=== PATIENT | male | born 1985 | race Caucasian/White ===

== ENCOUNTER → 2019-11-16 | Outpatient (CLI) | payer OTHER ==
--- NOTE | 2019-11-16 17:05 | KCIC ---
EXAM: Right knee, 4 views HISTORY: Right knee pain after injury. COMPARISON: None. FINDINGS: No fractures are identified. Joint spaces are maintained. There are small osteophytes along the medial and patellofemoral compartments. Alignment is normal. There is no joint effusion. IMPRESSION: 1. Minimal medial and patellofemoral compartmental osteoarthritis. Electronically signed by: Madina Barahona MD (11/16/2019 5:02 PM) [facility]
== END | disposition home or self-care (01) ==
LOC: KCIC 15:12
PROVIDERS: ATTEND Nurse Practitioner Family
DX: M17.11 Unilateral primary osteoarthritis, right knee (principal); M25.761 Osteophyte, right knee
CPT/HCPCS: 73564

== ENCOUNTER → 2020-01-30 | Outpatient (CLI) | payer OTHER ==
--- NOTE | 2020-01-31 12:20 | SLEEP ---
DATE OF STUDY: 01/30/2020 HOME SLEEP STUDY REFERRING BY: Nereyda Ramos APRN. The patient is a 34-year-old who weighs 320 pounds with a BMI of 41. The patient's [place] score was 7. The patient underwent home sleep study performed at [facility]. Total recording time was 401 minutes. During the night study, the patient had 34 obstructive apneas, no central apneas, 37 mixed apneas and 152 hypopneas. The patient's AHI was 39.6 per hour. Nocturnal oximetry study revealed an average oxygen saturation of 94% with the lowest of 76%. 18 minutes were spent in oxygen saturation less than 90%. Mean heart rate 81 beats per minute with a maximum of 122 beats per minute. IMPRESSION: 1. Severe obstructive sleep apnea at an AHI of 39.6 per hour. 2. Nocturnal hypoxia secondary to obstructive sleep apnea. RECOMMENDATIONS: 1. The patient would benefit from in-lab CPAP titration study. Alternate treatment option would include home auto-titration study. 2. Once the patient is optimally treated with CPAP, then follow up in 4-6 weeks to assess compliance and to document clinical improvement. 3. Weight loss is strongly advised. 4. Avoid [employer] [facility] [employer] depressants. 5. Cautioned regarding driving until symptoms of sleep apnea resolve with the use of CPAP. BEAR DOYLE MD DR: LAZARO/minal JOB#: [id number] / [id number] NEREYDA Deleon APRN
== END | disposition home or self-care (01) ==
LOC: RT 07:16
PROVIDERS: ATTEND Nurse Practitioner Family
DX: G47.33 Obstructive sleep apnea (adult) (pediatric) (principal); G47.34 Idiopathic sleep related nonobstructive alveolar hypoventilation
CPT/HCPCS: G0399

== ENCOUNTER → 2020-03-12 | Outpatient (CLI) | payer OTHER ==
[~2020-03-12] MED LIST: ZOLPIDEM 5 MG TABLET. PO ONE
--- NOTE | 2020-03-13 13:27 | SLEEP ---
DATE OF STUDY: 03/12/2020 OBJECTIVE: The patient is a 34-year-old male, previously studied on 01/31/2020 with a home sleep study showing apnea-hypopnea index of 39.6 events per hour of sleep. He returns to the lab for a CPAP titration study. Height 6 feet 3 inches, weight 340 pounds, body mass index 42. [place] sleep score 10. INTERPRETATION: Sleep architecture is characterized by sleep efficiency of 97% across the 7.4 hours of recording time. Stage volumes are appropriate for age. Sleep onset latency is 3 minutes. Respiratory monitoring shows a total of 44 events for an apnea-hypopnea index of 6.1 events per hour of sleep. Minimum oxygen saturation is 78%. Treatment is initiated and at a setting of 17 cm, the apnea/hypopnea index falls to 2.9 events per hour of sleep. No significant cardiac arrhythmias or periodic limb movements of sleep are observed. IMPRESSION: Abnormal polysomnogram with successful CPAP titration using 17 cm Respironics DreamWear full face mask, medium size. RECOMMENDATIONS: 1. The patient should be initiated on this setting. 2. He should avoid sedatives and alcohol and pursue weight loss. Thank you for letting us help with the patient's care. PJ ARCINIEGA MD DR: ELISABET/minal JOB#: [id number] / [id number] BEAR Carrasco MD, SANDRA APRN
== END ==
LOC: RT 18:44
PROVIDERS: ATTEND Nurse Practitioner Family
DX: G47.30 Sleep apnea, unspecified (principal)
CPT/HCPCS: 95811

== ENCOUNTER → 2020-05-24 | Outpatient (CLI) | payer OTHER ==
--- NOTE | 2020-05-24 17:15 | KCIC ---
MR LUMBAR SPINE [id number] History: Reason: LUMBAR RADICULOPATHY / Spl. Instructions: / History: LBP and worsening right thigh radiculopathy. Technique: Multiplanar, multi sequential MR imaging was performed of the lumbar spine. Comparison: None Findings: Several sequences are mildly motion degraded. Normal vertebral body height and alignment. No fracture. Congenitally small spinal canal. T12 vertebral body lesion measures 0.7 x 0.6 cm, likely atypical hemangioma. Conus terminates at the normal location. No evidence of nerve root clumping. L1-L2: No canal or neuroforaminal narrowing. L2-L3: Small disc bulge. No canal or neuroforaminal narrowing. L3-L4: Disc bulge with central disc protrusion. Mild canal narrowing. Subarticular recess narrowing. Mild facet arthropathy. No neuroforaminal narrowing. L4-L5: Disc bulge with central disc protrusion and annular fissure. Moderate canal narrowing. Subart icular recess narrowing with abutment of the descending L5 nerve roots. Moderate facet arthropathy. N o neuroforaminal narrowing. L5-S1: Narrowing of the thecal sac due to epidural fat. Moderate facet arthropathy. No neuroforamina l narrowing. Impression: 1. Multilevel lumbar spondylosis with congenitally small spinal canal and prominent epidural fat. 2. L4-L5 moderate canal narrowing and subarticular recess narrowing. 3. L3-L4 mild canal narrowing. Electronically signed by: Giovany Nieves DO (05/24/2020 5:09 PM) [id number]
== END ==
LOC: KCIC MRI 12:50
PROVIDERS: ATTEND Nurse Practitioner Family
DX: M47.26 Other spondylosis with radiculopathy, lumbar region (principal); M48.061 Spinal stenosis, lumbar region without neurogenic claudication; G57.91 Unspecified mononeuropathy of right lower limb
CPT/HCPCS: 72148

== ENCOUNTER → 2020-06-13 | Outpatient (CLI) | payer OTHER ==
[~2020-06-13] MED LIST changes: +GABA-585 PO; +LEXAPRO20 MG PO; +MELO15TA23 PO; -ZOLPIDEM 5 MG TABLET. PO ONE
--- NOTE | 2020-06-13 10:27 | PDOC1 ---
INITIAL PAIN CONSULT DATE OF SERVICE: DOS: DATE: 06/13/20 TIME: 10:20 CHIEF COMPLAINT: Chief Complaint: Low back and right lower extremity pain HISTORY OF PRESENT ILLNESS: 35-year-old male presents history of pain low back right lower extremity greater than left for about 3 months or so not the result of any specific injury or accident that he is aware of, but has had significant pain in the low back the right lower extremity greater than left in the posterior gluteus posterior lateral thigh lateral anterior thigh anteromedial thigh medial lower leg as well as in the anterior thigh on the left. Patient reports is across the low back as well aching and dull describes the pain is constant sharp stabbing throbbing in the back shooting in the lower extremity specially on the right side tingling and numbness in the leg as well as the foot with some easy fatigability in the right lower extremity compared to the left when standing walking changing positions. Patient reports is better with sitting or laying down but does awaken her from sleep about 2-3 times every night. Patient reports does not affect his bowel bladder control but does affect his ability walk he feels he is favoring his right lower extremity however is not using any assistive devices to ambulate such as canes or walkers. Patient has physical therapy started and is just begun with his physical therapy has been doing stretching and strength exercises on his own at home for about 2 months. Patient bertha is been off work since April 2020. Patient reports while the stretching does help slightly it is not decreasing the pain significantly and walking and standing is still significantly tender. Patient taking gabapentin as well also taking Aleve and ibuprofen also Tylenol only with temporary results of decreased pain by about 20%. Patient did have an MRI scan lumbar spine showing L3-4 disc bulge with central disc protrusion L4-5 shows disc bulge central disc protrusion and annular fissure and moderate canal narrowing with abutment of the descending L5 nerve roots. Patient reports no loss of motor function no bowel or bladder incontinence. PAST MEDICAL HISTORY: PMH: Arthritis, obesity, sleep apnea PREVIOUS SURGERIES: Past Surgical Hx: Mastoidectomy times 07/05/1992 CURRENT MEDICATIONS: Current Meds: Active Scripts Medications Dose Route/Sig Max Daily Dose Days Date Category Meloxicam 15 Mg Tablet 1 Tab PO DAILY 30 06/13/20 Reported Lexapro (Escitalopram Oxalate) 20 Mg Tablet 1 Tab PO DAILY 06/13/20 Reported Gabapentin (Gabapentin) 100 Mg Capsule 100 Mg PO HS 06/13/20 Reported ALLERGIES; Allergies: Coded Allergies: No Known Drug Allergies (Unverified , 03/12/20) FAMILY HISTORY: Family Hx: Diabetes, heart disease SOCIAL HISTORY: Social Hx: Patient does not drink alcohol does not smoke not use any illegal illicit or recreational drugs is single lives locally in [facility] 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 REVIEW OF SYSTEMS: ROS: Positive for those items mentioned in history of present illness, all systems are reviewed, otherwise negative ,and are complete full and well-documented on patient's chart. PHYSICAL EXAM: VS: Blood pressure is 167/81 pulse 84 respirations 18 temperature is 99.1 F height is 6 feet 2 inches weight is 337 pounds PE: PHYSICAL EXAMINATION: GENERAL: The patient is awake, alert, oriented, appropriate, very pleasant demeanor HEENT: Shows normocephalic, atraumatic. Extraocular movements are intact and symmetrical. Oral cavity: Mucous membranes moist and pink. Dentition is intact. NECK: Shows anterior throat supple without palpable lymphadenopathy noted. Swallow reflex symmetrical. CHEST: Shows normal on inspection. Breath sounds are clear bilaterally, no rales rhonchi or wheezes auscultated. HEART: Shows S1, S2 clear. No murmurs auscultated. ABDOMEN: Soft, nontender, nondistended, obese. No palpable organomegaly is noted. No rebound or guarding demonstrated. BACK: Shows spine grossly in the midline. Normal-appearing cervical lordotic curvature. There is slightly increased thoracic kyphosis, some minor flattening of the lumbar lordotic curvature. Lumbar paraspinous muscles show symmetrical on inspection, on palpation shows some moderate tenderness diffusely throughout the upper, middle and lower distribution of the paraspinous muscles bilaterally and also into the lower thoracic paraspinous musculature, firm and tender, but without specific trigger points, without radiation of pain. The patient has good rotational motion of the lumbar spine, both laterally as well as extension and flexion without significant difficulty or inability. No tenderness over the spinous processes, sacrum or sacroiliac regions. EXTREMITIES: Lower extremities show deep tendon reflexes 2+ in the patellar and tendo calcaneus tendons. Motor exam is 4 on a scale of 5 with right dorsiflexion, extension, quadriceps and hamstring flexion and 5/5 on the left. Peripheral pulses are 1+ posterior tibial. No peripheral edema is noted bilaterally. Lower extremities are warm and dry to touch, equal in color and appearance. Straight leg raise noted to be positive on the right about 40 degrees, left side is negative. Gaenslen's and Ranulfo's maneuvers are negative bilaterally. The patient is able to stand, stand on his toes without significan t difficulty or loss of balance, walks with a slight favoring gait does appear to favor the right lower extremity mildly with a limp but not use any assistive device such as canes or walkers to ambulate. SKIN: Shows warm and dry, good turgor. No edema. No sores, rashes or bruising throughout. IMPRESSION: Impression: 35-year-old male with approximate 3-month history increasing pain low back right greater than left lower extremity radicular fashion following a L4-5 dermatomal distribution Obesity Arthritis Sleep apnea Plan: Options were discussed with the patient including conservative medical management physical therapies interventional techniques. Patient would like to pursue interventional techniques. Patient with clinical right-sided L4-5 radiculopathy we discussed a lumbar epidural steroid injection using description as well as anatomical models to describe the procedure. Patient will wait for preauthorization with his insurance provider and once this is obtained we will have him return for a lumbar epidural steroid injection translaminar approach at the L4-5 level. In the meantime we will try Medrol Dosepak patient was given instructions well side effects beware with the medication and will follow-up as scheduled. TARA MORE MD Jun 13, 2020 10:27
== END | disposition home or self-care (01) ==
LOC: PNCL 08:56
PROVIDERS: ATTEND Anesthesiology
DX: M54.5 Low back pain (principal); M79.604 Pain in right leg; M19.90 Unspecified osteoarthritis, unspecified site; E66.9 Obesity, unspecified; G47.30 Sleep apnea, unspecified; Z79.899 Other long term (current) drug therapy; Z98.890 Other specified postprocedural states; Z82.49 Family history of ischemic heart disease and other diseases of the circulatory system; Z83.3 Family history of diabetes mellitus
CPT/HCPCS: 99214; G0463

== ENCOUNTER → 2020-06-27 | Outpatient (CLI) | payer OTHER ==
[~2020-06-27] MED LIST changes: +IOHEXOL 180 MG/ML 10 ML VIAL. ONE; +methylPREDNISolone ACETATE 40 MG/ML VIAL. ONE; +methylPREDNISolone ACETATE 80 MG/ML VIAL. ONE
--- NOTE | 2020-06-27 09:30 | PDOC ---
Progress Note - Pain Clinic Date of Service: DOS: DATE: 06/27/20 TIME: 09:28 Diagnosis: Dx: Lumbar radiculopathy with lumbar degenerative disc disease History or Present Illness: HPI: 35-year-old male returns follow-up status post initial evaluation and preauthorization for lumbar epidural steroid injection. Patient reports still significant pain the low back and right lower extremity as it was previously Medrol Dosepak was helpful for the first several days but the pain is returned now in the low back rating the posterior gluteus posterior lateral thigh lateral anterior thigh anterior medial thigh medial lower leg and medial knee on the right side. Patient reports it is an 8 on scale 10 is worse over the past week 6 on average 3 at its least is a 6 today patient scribes as aching and sharp tight and shooting stabbing burning and tingling and can be constant with walking and standing patient reports better with sitting or laying down does not awaken her from sleep at night. Patient reports no new motor or sensory deficits no new bowel or bladder incontinence or other complaints. Physical Exam: VS: Blood pressure is 150/94 pulse 85 respirations 18 temperature 98.2 F height is 6 foot 3 inches weight is 374 pounds PE: PHYSICAL EXAMINATION: GENERAL: The patient is awake, alert, oriented, appropriate, very pleasant demeanor HEENT: Shows normocephalic, atraumatic. Extraocular movements are intact and symmetrical. Oral cavity: Mucous membranes moist and pink. NECK: Shows anterior throat supple without palpable lymphadenopathy noted. Swallow reflex symmetrical. CHEST: Shows normal on inspection. Breath sounds are clear bilaterally. HEART: Shows S1, S2 clear. No murmurs auscultated. ABDOMEN: Soft, nontender, nondistended, obese. No palpable organomegaly is noted. BACK: Shows spine grossly in the midline. Normal-appearing cervical lordotic curvature. There is increased thoracic kyphosis, some flattening of the lumbar lordotic curvature. Lumbar paraspinous muscles show symmetrical on inspection, on palpation shows some moderate tenderness diffusely throughout the upper, middle and lower distribution of the paraspinous muscles without specific trigger points, without radiation of pain. The patient has good rotational m otion of the lumbar spine, both laterally as well as extension and flexion without significant difficulty. No tenderness over the spinous processes, sacrum or sacroiliac regions. EXTREMITIES: Lower extremities show deep tendon reflexes 2+ in the patellar and tendo calcaneus tendons. Motor exam is 4 on a scale of 5 with right dorsiflexion, extension, quadriceps and hamstring flexion and 5/5 on the left. Peripheral pulses are 1+ posterior tibial. No peripheral edema is noted bilaterally. Lower extremities are warm and dry to touch, equal in color and appearance. SKIN: Shows warm and dry, good turgor. No edema. No sores, rashes or bruising throughout. Procedure: Procedure: Options were discussed with the patient. Patient chart reviews her current medication regimen updated current review of systems updated today as well. We will proceed with a lumbar epidural steroid injection today with fluoroscopic guidance. Risks were discussed including but not limited to: Bleeding, infection, possibility of epidural hematoma and subsequent neurological compromise, dural puncture, headaches, spinal cord and/or nerve damage, side effects of steroid medication, and poor results regarding pain control. Patient understands and wished to proceed. Patient will return to the clinic in approximate 2 weeks for follow-up, was counseled as return appointment activity level and side effects to be aware of. Medication Injected: Med Injected: Procedure is lumbar epidural steroid injection under local anesthetic using sterile prep and drape at the L4-5 level using C-arm fluoroscopic guidance in both AP and lateral views medications injected is 112 mg Depo-Medrol + 10 mL preservative-free normal saline and 2 mL contrast- condition at discharge is stable patient tolerated procedure well had no complications. Condition at Discharge: Condition at Discharge: Condition at discharge stable, patient alert procedure well had no complications. TARA MORE MD Jun 27, 2020 09:30
--- NOTE | 2020-06-27 09:31 | PDOC4 ---
PROCEDURE Procedure Patient was consented for lumbar epidural steroid injection. Risks were dis cussed including but not limited to: Bleeding, infection, possibility of epidural hematoma and subsequent neurological compromise, dural puncture, headaches, spinal cord and/or nerve damage, side effects of steroid medication, and poor results regarding pain control. Patient understands and wished to proceed. Procedure is lumbar epidural steroid injection under local anesthetic using sterile prep and drape at the L4-5 level using C-arm fluoroscopic guidance in both AP and lateral views medications injected is 120 mg Depo-Medrol + 10 mL preservative-free normal saline and 2 mL contrast- condition at discharge is stable patient tolerated procedure well had no complications. TARA MORE MD Jun 27, 2020 09:31
== END | disposition home or self-care (01) ==
LOC: PNCL 09:02
PROVIDERS: ATTEND Anesthesiology
DX: M51.16 Intervertebral disc disorders with radiculopathy, lumbar region (principal); Z79.899 Other long term (current) drug therapy; Z98.890 Other specified postprocedural states
CPT/HCPCS: 62323; J1030; J1040; Q9965

== ENCOUNTER → 2020-07-11 | Outpatient (CLI) | payer OTHER ==
[~2020-07-11] MED LIST changes: -IOHEXOL 180 MG/ML 10 ML VIAL. ONE; -methylPREDNISolone ACETATE 40 MG/ML VIAL. ONE; -methylPREDNISolone ACETATE 80 MG/ML VIAL. ONE
--- NOTE | 2020-07-11 16:10 | RAD ---
EXAMINATION: XR KNEE 3 VIEWS CLINICAL HISTORY: Right knee pain TECHNIQUE: Bilateral knee radiographs Number of Images/Views: 6 COMPARISON: Right knee radiographs 11/16/2019 FINDINGS: Mild medial lateral compartment narrowing in the right knee. Joint spaces maintained in the left knee . Tricompartmental tiny marginal osteophytes bilaterally. No acute fracture. Small to moderate joint effusion. No significant left joint effusion. IMPRESSION: Mild degenerative changes right knee, greatest in the medial compartment. Electronically signed by: Kelvin Harrell DO (07/11/2020 4:08 PM) [id number]
== END | disposition home or self-care (01) ==
LOC: RAD 09:56
PROVIDERS: ATTEND Anesthesiology
DX: M17.11 Unilateral primary osteoarthritis, right knee (principal)
CPT/HCPCS: 99212; 73562-50; G0463

== ENCOUNTER → 2020-07-25 | Outpatient (CLI) | payer OTHER ==
[~2020-07-25] MED LIST changes: +IOHEXOL 180 MG/ML 10 ML VIAL. ONE; +methylPREDNISolone ACETATE 40 MG/ML VIAL. ONE; +methylPREDNISolone ACETATE 80 MG/ML VIAL. ONE
--- NOTE | 2020-07-25 09:33 | PDOC ---
Progress Note - Pain Clinic Date of Service: DOS: DATE: 07/25/20 TIME: 09:30 Diagnosis: Dx: Lumbar to colopathy lumbar degenerative disc disease Right knee joint pain with osteoarthritis History or Present Illness: HPI: 35-year-old male returns follow-up status post lumbar epidural steroid x1. Patient reports about 75% improvement after the first injection now with pain returning and awaiting preauthorization which he is obtained now with his insurance provider for second injection. Patient reports still significant pain in the low back right lower extremity posterior gluteus lateral thigh anterior thigh medial thigh medial knee as well. Patient reports is worse with walking and standing especially walking greater than 5 to 10 minutes. Patient reports after last injection no he was walking much better doing household activities travel with greater ease and comfort as well as sleeping better at night. Patient reports is generally not awaken from sleep at this time patient describes the pain as constant on and off in intensity tingling burning cramping and stabbing in the back with radiating shooting pain in the right leg that can be sharp as well patient rates his pain as an 8 on scale 10 is worse in the past week 5 on average to its least and is a 5 today. Patient reports no new motor or sensory deficits no new bowel or bladder incontinence. Physical Exam: VS: Pressure 160/102 pulse 90 respirations 18 temperature 98.3 F height is 6 feet 3 inches weight is 369 pounds PE: PHYSICAL EXAMINATION: GENERAL: The patient is awake, alert, oriented, appropriate, very pleasant demeanor HEENT: Shows normocephalic, atraumatic. Extraocular movements are intact and symmetrical. Oral cavity: Mucous membranes moist and pink. Dentition is intact. NECK: Shows anterior throat supple without palpable lymphadenopathy noted. Swallow reflex symmetrical. CHEST: Shows normal on inspection. Breath sounds are clear bilaterally, distant but no rales or rhonchi. HEART: Shows S1, S2 clear. No murmurs auscultated. ABDOMEN: Soft, nontender, nondistended, obese. No palpable organomegaly is noted. BACK: Shows spine grossly in the midline. Normal-appearing cervical lordotic curvature. There is slightly increased thoracic kyphosis, some minor flattening of the lumbar lordotic curvature. Lumbar paraspinous muscles show symmetrical on inspection, on palpation shows some moderate tenderness diffusely throughout the upper, middle and lower distribution of the paraspinous muscles without specific trigger points, without radiation of pain. The patient has good rotational motion of the lumbar spine, both laterally as well as extension and flexion without significant difficulty. No tenderness over the spinous processes, sacrum or sacroiliac regions. EXTREMITIES: Lower extremities show deep tendon reflexes 2+ in the patellar and tendo calcaneus tendons. Motor exam is 4 on a scale of 5 with right dorsiflexion, extension, quadriceps and hamstring flexion and 5/5 on the left. Peripheral pulses are 1+ posterior tibial. No peripheral edema is noted bilaterally. Lower extremities are warm and dry to touch, equal in color and appearance. SKIN: Shows warm and dry, good turgor. No edema. No sores, rashes or bruising throughout. Procedure: Procedure: Options were discussed with the patient. Patient chart reviews his current medication regimen updated current review of systems updated today as well. We will proceed with a second in the series lumbar epidural steroid injection stable fluoroscopic guidance. Risks were discussed including but not limited to: Bleeding, infection, possibility of epidural hematoma and subsequent neurological compromise, dural puncture, headaches, spinal cord and/or nerve damage, side effects of steroid medication, and poor results regarding pain control. Patient understands and wished to proceed. Patient will return to clinic in approximate 2 weeks for follow-up, was counseled as to return appointment activity level and side effects to be aware of. We reviewed the plain films of patient's knees showing right side with mild degenerative changes in the medial compartment. Medication Injected: Med Injected: Procedure is lumbar epidural steroid injection under local anesthetic using sterile prep and drape at the L4-5 level using C-arm fluoroscopic guidance in both AP and lateral views medications injected is 120 mg Depo-Medrol + 10 mL preservative-free normal saline and 2 mL contrast- condition at discharge is stable patient tolerated procedure well had no complications. Condition at Discharge: Condition at Discharge: Condition at discharge stable, patient already procedure well and had no complications. TARA MORE MD Jul 25, 2020 09:33
--- NOTE | 2020-07-25 09:34 | PDOC4 ---
PROCEDURE Procedure Patient was consented for lumbar epidural steroid injection. Risks were dis cussed including but not limited to: Bleeding, infection, possibility of epidural hematoma and subsequent neurological compromise, dural puncture, headaches, spinal cord and/or nerve damage, side effects of steroid medication, and poor results regarding pain control. Patient understands and wished to proceed. Procedure is lumbar epidural steroid injection under local anesthetic using sterile prep and drape at the L4-5 level using C-arm fluoroscopic guidance in both AP and lateral views medications injected is 120 mg Depo-Medrol + 10 mL preservative-free normal saline and 2 mL contrast- condition at discharge is stable patient tolerated procedure well had no complications. TARA MORE MD Jul 25, 2020 09:34
== END | disposition home or self-care (01) ==
LOC: PNCL 08:32
PROVIDERS: ATTEND Anesthesiology
DX: M51.36 Other intervertebral disc degeneration, lumbar region (principal); M17.11 Unilateral primary osteoarthritis, right knee; Z79.899 Other long term (current) drug therapy
CPT/HCPCS: 62323; J1030; J1040; Q9965; 77002

== ENCOUNTER → 2020-08-09 | Outpatient (CLI) | payer OTHER ==
[~2020-08-09] MED LIST changes: +BUPIVACAINE MPF 0.25% 10 ML VIAL. ONE; -methylPREDNISolone ACETATE 40 MG/ML VIAL. ONE
--- NOTE | 2020-08-09 09:11 | PDOC ---
Progress Note - Pain Clinic Date of Service: DOS: DATE: 08/09/20 TIME: 09:07 Diagnosis: Dx: Lumbar radiculopathy with lumbar degenerative disc disease Right knee joint pain with primary osteoarthritis History or Present Illness: HPI: 35-year-old male returns follow-up status post lumbar epidural straight injections x2. Patient reports near had a percent improvement in the back pain but still some pain in the right knee back is doing much better increase activity with distance walking distance traveling working activities household activities patient reports he can travel with greater ease and comfort he did go back to work had been off for 4 months but returned recently and has been doing better but his right knee is his main complaint today. Patient reports the knee is worse with walking standing putting weight on it specially stepping on a curb or step with all his weight on his right leg. Patient reports is a 7 on scale 10 is worse over the past week 5 on average to its least is a 5 today patient scribes pain in the knee is aching and sharp tight tingling at times and constant with weightbearing better with sitting or laying down generally is not awakening from sleep and over the last week has this is been walking more at work about every 6 or 6-1/2 hours. Patient reports no new motor or sensory deficits no new bowel or bladder incontinence or other complaints. Physical Exam: VS: Blood pressure is 145/81 pulse 84 respirations 18 temperature 98.6 F height is 6 foot 2 inches weight is 358 pounds PE: PHYSICAL EXAMINATION: GENERAL: The patient is awake, alert, oriented, appropriate, very pleasant demeanor HEENT: Shows normocephalic, atraumatic. Extraocular movements are intact and symmetrical. Oral cavity: Mucous membranes moist and pink. NECK: Shows anterior throat supple without palpable lymphadenopathy noted. Swallow reflex symmetrical. CHEST: Shows normal on inspection. Breath sounds are clear bilaterally, no rales or rhonchi. HEART: Shows S1, S2 clear. No murmurs auscultated. ABDOMEN: Soft, nontender, nondistended, obese. No palpable organomegaly is noted. No rebound or guarding demonstrated. BACK: Shows spine grossly in the midline. Normal-appearing cervical lordotic curvature. There is slightly increased thoracic kyphosis, some minor flattening of the lumbar lordotic curvature. Lumbar paraspinous muscles show symmetrical on inspection, on palpation shows some moderate tenderness diffusely throughout the upper, middle and lower distribution of the paraspinous muscles without specific trigger points, without radiation of pain. The patient has good rotational motion of the lumbar spine, both laterally as well as extension and flexion without significant difficulty. No tenderness over the spinous processe s, sacrum or sacroiliac regions. EXTREMITIES: Lower extremities show deep tendon reflexes 2+ in the patellar and tendo calcaneus tendons. Motor exam is 4 on a scale of 5 with right dorsiflexion, extension, quadriceps and hamstring flexion and 5/5 on the left. Peripheral pulses are 1+ posterior tibial. No peripheral edema is noted bilaterally. Lower extremities are warm and dry to touch, equal in color and appearance. Patient's right knee shows tenderness with palpation over the medial collateral ligament as well as the medial aspect of the inferior patella but with displacement is not any more tender. Patient has good rotational motion both actively and passively without crepitus without ratcheting. Left knee is normal on inspection and range of motion no tenderness with palpation throughout. SKIN: Shows warm and dry, good turgor. No edema. No sores, rashes or bruising throughout. Procedure: Procedure: Options discussed with the patient. Patient will chart reviews his current medication regimen updated current review of systems updated today as well. We will proceed with a right intra-articular knee joint injection today with fluoroscopic guidance. Risks were discussed including but limited to bleeding infection possibility of intravascular injection sequelae spread to local anesthetic and numbness special fluoroscopy side effects steroid medication and portal scarring pain control. Patient understands wished to proceed. Patient return to clinic in approximately 2 weeks for follow-up was counseled as to return appointment activity level and side effects to be aware of. Medication Injected: Med Injected: Under sterile prep and drape patient in the supine position using C-arm fluoroscopic guidance patient's right knee was visualized and using 1% lidocaine was topically anesthetized over the medial compartment of the right knee. Using a 22-gauge needle the knee joint was then entered without difficulty stylet was removed and 1.5 cc of contrast was injected with good spread throughout the knee joint both medially and laterally without uptake and without washout. At this time solution containing 3 cc of 0.25% ropivacaine and 80 mg Depo-Medrol was then injected needle was removed and sterile bandage was applied. Patient tolerated procedure well had no complications. Condition at Discharge: Condition at Discharge: Patient condition at discharge is stable patient tolerated the procedure well had no complications. TARA MORE MD Aug 09, 2020 09:11
--- NOTE | 2020-08-09 09:12 | PDOC4 ---
PROCEDURE Procedure Patient was consented for right intra-articular knee joint injection. Risks were discussed including but not limited to bleeding infection possibility of intravascular injection and sequelae spread of local anesthetic numbness side effects steroid medication exposure to fluoroscopy and poor results running pain control. Patient understands wished to proceed. Under sterile prep and drape patient in the supine position using C-arm fluoroscopic guidance patient's right knee was visualized and using 1% lidocaine was topically anesthetized over the medial compartment of the right knee. Using a 22-gauge needle the knee joint was then entered without difficulty stylet was removed and 1.5 cc of contrast was injected with good spread throughout the knee joint both medially and laterally without uptake and without washout. At this time solution containing 3 cc of 0.25% ropivacaine and 80 mg Depo-Medrol was then injected needle was removed and sterile bandage was applied. Patient tolerated procedure well had no complications. TARA MORE MD Aug 09, 2020 09:12
== END | disposition home or self-care (01) ==
LOC: PNCL 07:59
PROVIDERS: ATTEND Anesthesiology
DX: M17.11 Unilateral primary osteoarthritis, right knee (principal); M51.16 Intervertebral disc disorders with radiculopathy, lumbar region; M25.561 Pain in right knee; Z79.899 Other long term (current) drug therapy
CPT/HCPCS: 20610; 77002; J1040; J3490; Q9965

== ENCOUNTER → 2020-09-04 | Outpatient (CLI) | payer OTHER ==
--- NOTE | 2020-09-04 11:21 | PDOC ---
Progress Note - Pain Clinic Date of Service: DOS: DATE: 09/04/20 TIME: 11:17 Diagnosis: Dx: Lumbar radiculopathy with lumbar degenerative disc disease Right knee joint pain with osteoarthritis History or Present Illness: HPI: 35-year-old male returns for follow-up status post right knee joint injection as well as lumbar epidural steroid injection. 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 Patient reports is aching and sharp can be dull and tight at the same time in the leg tingling and burning pain that can be constant with walking patient reports is a 7 on scale 10 is worse over the past week for an average to its least is a 4 today patient reports no new motor or sensory deficits no new bowel or bladder incontinence or other complaints. Patient back is doing much better reports almost no pain in his low back even with the extended walking after returning to work. Physical Exam: VS: Blood pressure is 129/78 pulse 75 respirations 18 temperature 90.4 F height is 6 foot 2 inches weight is 339 pounds PE: PHYSICAL EXAMINATION: GENERAL: The patient is awake, alert, oriented, appropriate, very pleasant demeanor HEENT: Shows normocephalic, atraumatic. Extraocular movements are intact and symmetrical. Oral cavity: Mucous membranes moist and pink. Dentition is intact. NECK: Shows anterior throat supple without palpable lymphadenopathy noted. Swallow reflex symmetrical. CHEST: Shows normal on inspection. Breath sounds are clear bilaterally. HEART: Shows S1, S2 clear. No murmurs auscultated. ABDOMEN: Soft, nontender, nondistended. No palpable organomegaly is noted. No rebound or guarding demonstrated. BACK: Shows spine grossly in the midline. Normal-appearing cervical lordotic curvature. There is slightly increased thoracic kyphosis, some minor flattening of the lumbar lordotic curvature. Lumbar paraspinous muscles show symmetrical on inspection, on palpation shows some moderate tenderness diffusely throughout the upper, middle and lower distribution of the paraspinous muscles without specific trigger points, without radiation of pain. The patient has good rotational motion of the lumbar spine, both laterally as well as extension and flexion without significant difficulty. No tenderness over the spinous processes, sacrum or sacroiliac regions. EXTREMITIES: Lower extremities show deep tendon reflexes 2+ in the patellar and tendo calcaneus tendons. Motor exam is 4 on a scale of 5 with right dorsi flexion, extension, quadriceps and hamstring flexion and 5/5 on the left. Peripheral pulses are 1 posterior tibial. No peripheral edema is noted bilaterally. Lower extremities are warm and dry to touch, equal in color and appearance. Patient's right knee shows good range of motion without crepitus or ratcheting moderate tenderness with medial collateral ligament palpation but w ithout radiation lateral aspect is nontender as is the posterior popliteal fossa. SKIN: Shows warm and dry, good turgor. No edema. No sores, rashes or bruising throughout. Procedure: Procedure: Options discussed with the patient. Patient chart was reviewed his current medication regimen updated current review of systems updated today as well. We will proceed with a right intra-articular knee joint injection with fluoroscopic guidance. Risks discussed including but not limited to bleeding infection possibility of intravascular injection sequelae spread of local anesthetic and numbness side effects steroid medication exposure to fluoroscopy and poor results regarding pain control. Patient understands wished to proceed. Patient return to clinic in approximately 1 month or as necessary. Patient is counseled as activity level as well as side effects to be aware. Medication Injected: Med Injected: Under sterile prep and drape patient supine position using C-arm fluoroscopic guidance patient's right knee was visualized and medial compartment of the knee joint was visualized and using 1% lidocaine with 25-gauge needle was topically anesthetized over the medial compartment of the knee joint. Using a 22-gauge quickie needle with stylette the joint was entered under direct visualization without significant difficulty stylet was removed 1.5 cc of contrast was then injected with good spread within the knee joint without washout or uptake. At this time solution containing 3 cc of 0.25 bupivacaine and 80 mg of Depo-Medrol was then injected into the knee joint. Needle was withdrawn and sterile bandage was applied. Patient tolerated procedure well and had no complications. Condition at Discharge: Condition at Discharge: Condition at discharge stable, patient alert procedure well and had no compl ications. TARA MORE MD Sep 04, 2020 11:21
--- NOTE | 2020-09-04 11:22 | PDOC4 ---
PROCEDURE Procedure Patient was consented for right intra-articular knee joint injection with fl uoroscopic guidance. Risk were discussed including but not limited to bleeding infection possibility of intravascular injection sequelae spread of local anesthetic numbness side effects steroid medication exposure fluoroscopy and portals regarding pain control. Patient understands wished to proceed. Under sterile prep and drape patient supine position using C-arm fluoroscopic guidance patient's right knee was visualized and medial compartment of the knee joint was visualized and using 1% lidocaine with 25-gauge needle was topically anesthetized over the medial compartment of the knee joint. Using a 22-gauge quickie needle with stylette the joint was entered under direct visualization without significant difficulty stylet was removed 1.5 cc of contrast was then injected with good spread within the knee joint without washout or uptake. At this time solution containing 3 cc of 0.25 bupivacaine and 80 mg of Depo-Medrol was then injected into the knee joint. Needle was withdrawn and sterile bandage was applied. Patient tolerated procedure well and had no complications. TARA MORE MD Sep 04, 2020 11:22
== END | disposition home or self-care (01) ==
LOC: PNCL 10:27
PROVIDERS: ATTEND Anesthesiology
DX: M17.11 Unilateral primary osteoarthritis, right knee (principal); M51.16 Intervertebral disc disorders with radiculopathy, lumbar region; M25.561 Pain in right knee; Z79.899 Other long term (current) drug therapy
CPT/HCPCS: 20610; 77002; J1040; J3490; Q9965

== ENCOUNTER → 2020-10-09 | Outpatient (CLI) | payer OTHER ==
[~2020-10-09] MED LIST changes: -BUPIVACAINE MPF 0.25% 10 ML VIAL. ONE; +methylPREDNISolone ACETATE 40 MG/ML VIAL. ONE
--- NOTE | 2020-10-09 08:24 | PDOC ---
Progress Note - Pain Clinic Date of Service: DOS: DATE: 10/09/20 TIME: 08:21 Diagnosis: Dx: Lumbar radiculopathy with lumbar degenerative disc disease Right knee joint pain with primary osteoarthritis History or Present Illness: HPI: 35-year-old male returns for follow-up status post lumbar epidural steroid injection x2 and right knee joint injection x2 with about 90% improvement with the knee and about 85% improvement with the low back. Patient reports the back is beginning to become more noticeable with pain radiating to the right lower extremity posterior gluteus lateral thigh anterior thigh medial thigh medial lower leg with walking and standing. 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 Physical Exam: VS: Blood pressure is 145/90 pulse 80 respirations 16 temperature 98.2 F weight is 332 pounds PE: PHYSICAL EXAMINATION: GENERAL: The patient is awake, alert, oriented, appropriate, very pleasant demeanor HEENT: Shows normocephalic, atraumatic. Extraocular movements are intact and symmetrical. Oral cavity: Mucous membranes moist and pink. Dentition is intact. NECK: Shows anterior throat supple without palpable lymphadenopathy noted. Swallow reflex symmetrical. CHEST: Shows normal on inspection. Breath sounds are clear bilaterally, no rales or rhonchi. HEART: Shows S1, S2 clear. No murmurs auscultated. ABDOMEN: Soft, nontender, nondistended, obese. No palpable organomegaly is noted. No rebound or guarding demonstrated. BACK: Shows spine grossly in the midline. Normal-appearing cervical lordotic curvature. There is slightly increased thoracic kyphosis, some minor flattening of the lumbar lordotic curvature. Lumbar paraspinous muscles show symmetrical on inspection, on palpation shows some moderate tenderness diffusely throughout the upper, middle and lower distribution of the paraspinous muscles, but without specific trigger points, without radiation of pain. The patient has good rotational motion of the lumbar spine, both laterally as well as extension and flexion without significant difficulty. EXTREMITIES: Lower extremities show deep tendon reflexes 2+ in the patellar and tendo calcaneus tendons. Motor exam is 4 on a scale of 5 with right dorsiflexion, extension, quadriceps and hamstring flexion and 5/5 on the left. Peripheral pulses are 1+ posterior tibial. No peripheral edema is noted bilaterally. Lower extremities are warm and dry. SKIN: Shows warm and dry, good turgor. No edema. No sores, rashes or bruising throughout. Procedure: Procedure: Options were discussed with the patient. Patient's old chart was reviewed his his current medication regimen updated current review of systems updated today as well. We will proceed with a third in the series lumbar epidural steroid ejections today with fluoroscopic guidance. Risks were discussed including but not limited to: Bleeding, infection, possibility of epidural hematoma and subsequent neurological compromise, dural puncture, headaches, spinal cord and/or nerve damage, side effects of steroid medication, and poor results regarding pain control. Patient understands and wished to proceed. Patient will return to clinic in approximate 2 weeks for follow-up, was counseled as return appointment activity level and side effects to be aware of. Medication Injected: Med Injected: Procedure is lumbar epidural steroid injection under local anesthetic using sterile prep and drape at the L4-5 level using C-arm fluoroscopic guidance in both AP and lateral views medications injected is 120 mg Depo-Medrol +10mL preservative-free normal saline and 2 mL contrast- condition at discharge is sta ble patient tolerated procedure well had no complications. Condition at Discharge: Condition at Discharge: Condition at discharge stable, patient already procedure well and had no complications. TARA MORE MD October 09, 2020 08:24
--- NOTE | 2020-10-09 08:24 | PDOC4 ---
PROCEDURE Procedure Patient was consented for lumbar epidural steroid injection. Risks were dis cussed including but not limited to: Bleeding, infection, possibility of epidural hematoma and subsequent neurological compromise, dural puncture, headaches, spinal cord and/or nerve damage, side effects of steroid medication, and poor results regarding pain control. Patient understands and wished to proceed. Procedure is lumbar epidural steroid injection under local anesthetic using sterile prep and drape at the L4-5 level using C-arm fluoroscopic guidance in both AP and lateral views medications injected is 120 mg Depo-Medrol +10mL preservative-free normal saline and 2 mL contrast- condition at discharge is stable patient tolerated procedure well had no complications. TARA MORE MD October 09, 2020 08:24
== END | disposition home or self-care (01) ==
LOC: PNCL 07:35
PROVIDERS: ATTEND Anesthesiology
DX: M51.16 Intervertebral disc disorders with radiculopathy, lumbar region (principal); M17.11 Unilateral primary osteoarthritis, right knee; Z79.899 Other long term (current) drug therapy
CPT/HCPCS: 62323; J1030; J1040; Q9965